=== PATIENT | female | born 2000 | race Caucasian/White ===

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

== ENCOUNTER → 2021-05-21 12:56 | Outpatient (BNVA) | payer OTHER, SELFPAY | PROVIDERS: Family Provider Nurse Practitioner Family; PCP Nurse Practitioner Family | DX: R30.9 Painful micturition, unspecified (principal); N89.8 Other specified noninflammatory disorders of vagina; R10.2 Pelvic and perineal pain | CPT/HCPCS: 81000; 87491; 87530; 87591 ==

== ENCOUNTER → 2021-10-09 09:11 | Outpatient (BNVA) | payer OTHER, SELFPAY | PROVIDERS: Family Provider Nurse Practitioner Family; PCP Nurse Practitioner Family; Visit Provider Nurse Practitioner Family | DX: D35.2 Benign neoplasm of pituitary gland (principal); E22.9 Hyperfunction of pituitary gland, unspecified | CPT/HCPCS: 80048; 84146 ==

== ENCOUNTER → 2021-12-24 08:48 | Outpatient (BNVA) | payer OTHER, SELFPAY | PROVIDERS: Family Provider Nurse Practitioner Family; PCP Nurse Practitioner Family; Visit Provider Internal Medicine | DX: D35.2 Benign neoplasm of pituitary gland (principal); E22.9 Hyperfunction of pituitary gland, unspecified | CPT/HCPCS: 82024; 82672; 83001; 83002; 84144; 84146; 84305; 84439 ==

== ENCOUNTER 2022-05-02 16:41 | Inpatient (IN) | payer OTHER, SELFPAY ==
[2022-05-02 16:50] VITALS: BP 123/82; PULSE 90; RESP 16; TEMP 36.7; O2SAT 95; BMI 22.6
[2022-05-02 17:29] LABS: Basophils % 0.6 %; Eosinophils # 0.1 10^3/uL (0.0-0.8); Eosinophils % 0.9 %; Hematocrit 39.4 % (37.0-47.0); Lymphocytes # 1.8 10^3/uL (1.5-6.5); Lymphocytes % 28.3 %; Mean Corpuscular Hemoglobin 30.3 pg (28.0-34.0); Mean Corpuscular Volume 91.8 fl (81-99); Mean Platelet Volume 9.7 fL (7.4-10.4); Monocytes # 0.6 10^3/uL (0.2-0.9); Neutrophils # 3.82 10^3/uL (1.8-8.0); Neutrophils % 59.9 %; Nucleated Red Blood Cells % 0 %; Platelet Count 299 10^3/cmm (130-400); Red Blood Count 4.29 10^6/uL (4.1-5.3); Red Cell Distribution Width 12.3 % (12.1-15.1); White Blood Count 6.4 10^3/uL (4.5-13.0)
--- NOTE | 2022-05-02 17:38 | ED.C_ITS ---
HPI - Psych General: Chief Complaint: Psychiatric Symptoms Stated Complaint: Psych Eval Time Seen by Provider: 05/02/22 16:51 Source: patient Mode of arrival: ambulatory Limitations: no limitations History of Present Illness: 21-year-old female who has a history of depression states that she has been in college over the last 10 months having increasing life stressors depression and anxiety she states she is been on meds in the past on anything currently she states that she just feels severely depressed she denies any suicidality or homicidality but voluntarily wants to be admitted to the psych busch. Associated symptoms: Reports depression Review of Systems Const: Denies: fever(s), chills, body aches or change in appetite Eyes: Denies: blurry vision or eye discomfort ENMT: Denies: throat pain or dental pain Card: Denies: chest pain Resp: Denies: dyspnea GI: Denies: abdominal pain, nausea, vomiting or diarrhea : Denies: dysuria Musc: Denies: neck pain or back pain Skin/Breast: Denies: rash Neuro: Denies: headache(s) Psych: Reports: depression Leon/Lymph: Denies: easy bruising All/Imm: Denies: urticaria PFSH ED PFSH: Medical History No pertinent past medical history neghx: htn,dm,thyroid,dvt/pe Surgical History No pertinent past surgical history Family History Grandmother Breast cancer paternal, paternal great grandmother Hypertension maternal Thyroid condition paternal Heart disease maternal great Grandfather Diabetes paternal Heart disease maternal great Social History Smoking and tobacco status: current every day smoker Alcohol intake: never Additional social history: - Tobacco use: Denies Alcohol use: Denies Drug use: Denies Female Reproductive History: Date of last menstrual period: 03/18/22 Physical Exam Const: COMMON NORMALS: no acute distress, patient oriented x3 and healthy appearing HENMT: COMMON NORMALS: normocephalic and atraumatic HEAD & SCALP: normocephalic and atraumatic Eye: COMMON NORMALS: Equal, round and reactive pupils present and EOMs intact bilaterally PUPIL: Yes Equal, round and reactive pupils present Neck/C-Spine: COMMON NORMALS: full ROM and supple Chest: COMMONS NORMALS: normal inspection of the chest and normal palpation of entire chest wall Resp: COMMON NORMALS: normal respiratory effort, No retractions, No use of accessory muscles and clear to auscultation bilaterally AUSCULTATION: clear to auscultation bilaterally Cardio: COMMON NORMALS: regular rate, regular rhythm and No murmurs present (Cardio) RATE: regular rate RHYTHM: regular rhythm GI: COMMON NORMALS: Normal to inspection, nondistended, normoactive bowel sounds present, Soft to palpation, non-tender and no masses PALPATION: Yes Soft to palpation Extremity: COMMON NORMALS: normal to inspection and full ROM Neuro: COMMON NORMALS: patient oriented x3, moves all extremities and no focal motor deficits Psych: COMMON NORMALS: mental status grossly normal, Normal thought process present and cooperative MOOD & AFFECT: Yes depressed mood THOUGHT PROCESS: Normal thought process present Skin: COMMON NORMALS: no rashes or lesions noted and no wounds GENERAL SKIN EXAM: no rashes or lesions noted Course Vital Signs: Vital signs: Vital Signs Temperature 98.1 F 05/02/22 16:50 Pulse Rate 90 05/02/22 16:50 Respiratory Rate 16 05/02/22 16:50 Blood Pressure 123/82 05/02/22 16:50 Pulse Oximetry 95 05/02/22 16:50 Oxygen Delivery Me thod 05/02/22 16:50 [facility] - Psych Medical Decision Making Patient presents here with depression she is medically cleared I spoke to psychiatrist will admit to the psych unit under voluntary status. Lab Data : 05/02/22 17:22 05/02/22 17:22 Laboratory Results WBC 6.4 10^3/uL (4.5-13.0) 05/02/22 17: RBC 4.29 10^6/uL (4.1-5.3) 05/02/22 17:22 Hgb 13.0 g/dL (11.5-15.3) 05/02/22 17:22 Hct 39.4 % (37.0-47.0) 05/02/22 17:22 MCV 91.8 fl (81-99) 05/02/22 17:22 MCH 30.3 pg (28.0-34.0) 05/02/22 17: MCHC 33.0 g/dL (30.0-36.0) 05/02/22 17: RDW 12.3 % (12.1-15.1) 05/02/22 17: Plt Count 299 10^3/cmm (130-400) 05/02/22 17: MPV 9.7 fL (7.4-10.4) 05/02/22 17: Neut % (Auto) 59.9 % 05/02/22 17: Lymph % (Auto) 28.3 % 05/02/22 17: [place] % (Auto) 10.0 % 05/02/22 17: Eos % (Auto) 0.9 % 05/02/22 17: Baso % (Auto) 0.6 % 05/02/22: Neut # (Auto) 3.82 10^3/uL (1.8-8.0) 05/02/22: Lymph # (Auto) 1.8 10^3/uL (1.5-6.5) 05/02/22: [place] # (Auto) 0.6 10^3/uL (0.2-0.9) 05/02/22: Eos # (Auto) 0.1 10^3/uL (0.0-0.8) 05/02/22: Baso # (Auto) 0.0 10^3/uL (0.0-0.1) 05/02/22: Nucleated RBC % (auto) 0 % 05/02/22 17: Nucleated RBCs # 0.0 /100WBC 05/02/22 17:22 Sodium 140 mmol/L (136-145) 05/02/22 17: Potassium 3.8 mmol/L (3.5-5.1) 05/02/22 17: Chloride 102 mmol/L (98-107) 05/02/22 17: Carbon Dioxide 30 mmol/L (22-29) H 05/02/22 17:22 Anion Gap 11.8 (5-19) 05/02/22 17: BUN 7 mg/dL (6-20) 05/02/22 17:22 Creatinine 0.8 mg/dL (0.5-0.9) 05/02/22 17:22 GFR Calculation 91.4 mL/min (90-130) 05/02/22 17:22 Glucose 97 mg/dL (65-115) 05/02/22 17:22 Calculated Osmolality 288 mOsm/kg (285-295) 05/02/22 17:22 Calcium 9.6 mg/dL (8.5-10.5) 05/02/22 17:22 Total Bilirubin 0.5 mg/dL (0.15-1.2) 05/02/22 17:22 AST 19 U/L (0-32) 05/02/22 17:22 ALT 13 U/L (0-33) 05/02/22 17:22 Alkaline Phosphatase 76 U/L (35-105) 05/02/22 17:22 Total Protein 7.4 g/dL (6.6-8.7) 05/02/22 17:22 Albumin 4.8 g/dL (3.5-5.2) 05/02/22 17:22 Globulin 2.6 g/dL (1.3-4.6) 05/02/22 17:22 HCG, Qual Negative (Negative) 05/02/22 18:19 Salicylates < 0.3 mg/dL (3-10) L 05/02/22 17:22 Acetaminophen < 5.0 ug/mL (10-30) L 05/02/22 17:22 Ethyl Alcohol < 10 mg/dL (0-10) 05/02/22 17:22 Discharge Plan Discharge Patient Disposition: Admitted As Inpatient Admit Provider: Elliott Best Clinical Impression: Depression Condition: Stable Coding Level of Care Code ED Humanities And Languages Professor for Chg Fwd Exam Comprehensive
[2022-05-02 17:45] LABS: Alanine Aminotransferase 13 U/L (0-33); Albumin Level 4.8 g/dL (3.5-5.2); Alkaline Phosphatase 76 U/L (35-105); Anion Gap 11.8 (5-19); Aspartate Amino Transferase 19 U/L (0-32); Blood Urea Nitrogen 7 mg/dL (6-20); Calcium 9.6 mg/dL (8.5-10.5); Carbon Dioxide 30 mmol/L (22-29); Chloride 102 mmol/L (98-107); Creatinine Clr Calc Pharmacy 107.9875; Globulin 2.6 g/dL (1.3-4.6); Glomerular Filtration Rate 91.4 mL/min (90-130); Glucose 97 mg/dL (65-115); Osmolality Calculated 288 mOsm/kg (285-295); Potassium 3.8 mmol/L (3.5-5.1); Sodium 140 mmol/L (136-145); Total Bilirubin 0.5 mg/dL (0.15-1.2); Total Protein 7.4 g/dL (6.6-8.7)
[2022-05-02 17:50] LABS: Acetaminophen < 5.0 ug/mL (10-30); Alcohol Level < 10 mg/dL (0-10); Salicylate < 0.3 mg/dL (3-10)
[2022-05-02 18:29] LABS: HCG Qualitative Urine. Negative (Negative)
--- NOTE | 2022-05-02 18:58 | PC.NURSE ---
REPORT GIVEN TO TALHA [facility] ASSUMED CARE.
[2022-05-02 19:30] LABS: Amphetamines Screen Urine Negative (Negative); Barbiturates Screen Urine Negative (Negative); Benzodiazepines Screen Urine Negative (Negative); Cocaine Screen Urine Negative (Negative); Opiate Screen Urine Negative (Negative); PCP Screen Urine Negative (Negative); THC Screen Urine Negative (Negative)
[2022-05-02 20:39] VITALS: BP 115/78; PULSE 70; RESP 18; TEMP 37.1; O2SAT 97
--- NOTE | 2022-05-02 21:05 | PC.NURSE ---
1917 Arrived from ER via w/c and staff escort. A/O x 4, bright affect, conversation is oriented and goal directed. Denies SI/HH/AVH. Ambulatory without assist. Bilateral nose piercings, piercing to lower lip. States increasing s/s of depression, anxiety over the past years. Being in college now is making s/s worse. Good support system including friends and family. Denies significant medical HX. NKA. Stated previous used of ETOH & MJ since age 14 and stopped on her own 7 mos ago. Oriented to unit by staff.
[2022-05-03 07:05] VITALS: BP 107/71; PULSE 75; RESP 16; TEMP 36.8; O2SAT 100
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
[2022-05-03 14:00] VITALS: BP 98/66; PULSE 86; RESP 16; TEMP 36.6; O2SAT 100
[2022-05-03] MEDS: fluoxetine 10 mg Capsule PO (18:46)
[2022-05-03] MEDS: BuSPIRONE 10 mg Tablet 15 MG PO (18:46)
[2022-05-03 19:37] VITALS: BP 113/86; PULSE 82; RESP 16; TEMP 36.8; O2SAT 99
[2022-05-04 06:00] VITALS: BP 117/77; PULSE 76; RESP 16; TEMP 36.8; O2SAT 99
[2022-05-04] MEDS: fluoxetine 20 mg Capsule PO (08:33)
[2022-05-04] MEDS: BuSPIRONE 10 mg Tablet 15 MG PO (08:33)
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
[2022-05-04 13:43] VITALS: BP 110/70; PULSE 80; RESP 18; TEMP 36.8; O2SAT 99
== END 2022-05-04 14:45 | disposition home or self-care (01) | DRG 881 ==
LOC: ER 18:40 → NP 18:46
PROVIDERS: Admitting Provider Psychiatry & Neurology Psychiatry; Emergency Provider Emergency Medicine; PCP Nurse Practitioner Family; Visit Provider Psychiatry & Neurology Psychiatry
DX: F32.A Depression, unspecified (principal); F41.1 Generalized anxiety disorder; F43.12 Post-traumatic stress disorder, chronic; Z62.810 Personal history of physical and sexual abuse in childhood; Z63.8 Other specified problems related to primary support group; Z62.820 Parent-biological child conflict; Z62.898 Other specified problems related to upbringing; F17.210 Nicotine dependence, cigarettes, uncomplicated
CPT/HCPCS: 36415; 80053; 80306; 80307; 81025; 85025; 97150; 97165; 99285

== ENCOUNTER 2022-07-01 13:17 | Emergency (ER) | payer OTHER, SELFPAY ==
[2022-07-01 13:25] VITALS: BP 132/84; PULSE 89; TEMP 36.8; O2SAT 99; BMI 21.9
[2022-07-01 13:50] LABS: HCG Qualitative Urine. Negative (Negative)
[2022-07-01 13:55] LABS: Basophils % 0.7 %; Eosinophils # 0.1 10^3/uL (0.0-0.8); Eosinophils % 0.9 %; Hematocrit 38.6 % (37.0-47.0); Hemoglobin 12.8 g/dL (11.5-15.3); Lymphocytes # 1.2 10^3/uL (0.8-4.8); Lymphocytes % 21.8 %; Mean Corpuscular HGB Conc 33.2 g/dL (30.0-36.0); Mean Corpuscular Hemoglobin 30.4 pg (28.0-34.0); Mean Corpuscular Volume 91.7 fl (81-99); Mean Platelet Volume 9.4 fL (7.4-10.4); Monocytes # 0.5 10^3/uL (0.2-0.9); Monocytes % 8.5 %; Neutrophils # 3.82 10^3/uL (1.8-7.7); Neutrophils % 67.9 %; Nucleated Red Blood Cells % 0 %; Platelet Count 281 10^3/cmm (130-400); Red Blood Count 4.21 10^6/uL (4.1-5.3); White Blood Count 5.6 10^3/uL (4.0-10.0)
[2022-07-01 14:07] LABS: INR 1.07 (0.8-1.2)
[2022-07-01 14:08] LABS: Partial Thromboplastin Time 34.2 SECONDS (23.9-36.7)
[2022-07-01 14:13] LABS: Alanine Aminotransferase 21 U/L (0-33); Albumin Level 4.4 g/dL (3.5-5.2); Alkaline Phosphatase 76 U/L (35-105); Anion Gap 14.9 (5-19); Aspartate Amino Transferase 24 U/L (0-32); Blood Urea Nitrogen 6 mg/dL (6-20); Calcium 9.2 mg/dL (8.5-10.5); Carbon Dioxide 27 mmol/L (22-29); Chloride 104 mmol/L (98-107); Globulin 3.3 g/dL (1.3-4.6); Glomerular Filtration Rate 105.6 mL/min (90-130); Glucose 94 mg/dL (65-115); Lipase 28 U/L (13-60); Osmolality Calculated 291 mOsm/kg (285-295); Potassium 3.9 mmol/L (3.5-5.1); Sodium 142 mmol/L (136-145); Total Bilirubin 0.3 mg/dL (0.15-1.2); Total Protein 7.7 g/dL (6.6-8.7)
[2022-07-01 14:36] LABS: Add Urine Microscopic? NO; Charge for UA Resulting for Rev
[2022-07-01 14:39] LABS: Bilirubin Urine Neg (Negative); Blood Urine Neg (Negative); Glucose Urine UA Norm (Normal); Ketones Urine Negative (Negative); Leukocyte Esterase Urine Negative (Negative); Nitrate Urine Negative (Negative); Protein Urine Neg (Negative); Urine Appearance Clear (CLEAR); Urine Color Yellow (Yellow); Urobilinogen Urine Norm (Negative); pH Urine 5 (5-7)
--- NOTE | 2022-07-01 15:05 | W.ED.ABDPA2 ---
HPI - Abdominal Pain General: Chief Complaint: Abdominal Pain Stated Complaint: n/v/d Time Seen by Provider: 07/01/22 14:35 History of Present Illness: Patient was roomed. I went to see her, and she told the nurse she decided she really didn't need to be seen. Patient decided to leave without evaluation. Related Data: Date of Last Menstrual Period: 03/18/22 [facility] ED PFSH: Medical History No pertinent past medical history neghx: htn,dm,thyroid,dvt/pe Surgical History No pertinent past surgical history Family History Grandmother Breast cancer paternal, paternal great grandmother Hypertension maternal Thyroid condition paternal Heart disease maternal great Grandfather Diabetes paternal Heart disease maternal great Social History Smoking and tobacco status: current some day smoker Alcohol intake: never Additional social history: - Tobacco use: Denies Alcohol use: Denies Drug use: Denies Female Reproductive History: Date of last menstrual period: 03/18/22 Course Vital Signs: Vital signs: Vital Signs Temperature 98.3 F 07/01/22 13:25 Pulse Rate 89 07/01/22 13:25 Blood Pressure 132/84 07/01/22 13:25 Pulse Oximetry 99 07/01/22 13:25 Oxygen Delivery Me thod 07/01/22 13:25 MDM - Abdominal Pain Medical Decision Making LWOBS Lab Data 07/01/22 13:50 07/01/22 13:50 Labs/Radiology: Laboratory Results WBC 5.6 10^3/uL (4.0-10.0) 07/01/22 13:50 RBC 4.21 10^6/uL (4.1-5.3) 07/01/22 13:50 Hgb 12.8 g/dL (11.5-15.3) 07/01/22 13:50 Hct 38.6 % (37.0-47.0) 07/01/22 13:50 MCV 91.7 fl (81-99) 07/01/22 13:50 MCH 30.4 pg (28.0-34.0) 07/01/22 13:50 MCHC 33.2 g/dL (30.0-36.0) 07/01/22 13:50 RDW 12.0 % (12.1-15.1) L 07/01/22 13:50 Plt Count 281 10^3/cmm (130-400) 07/01/22 13:50 MPV 9.4 fL (7.4-10.4) 07/01/22 13:50 Neut % (Auto) 67.9 % 07/01/22 13:50 Lymph % (Auto) 21.8 % 07/01/22 13:50 [place] % (Auto) 8.5 % 07/01/22 13:50 Eos % (Auto) 0.9 % 07/01/22 13:50 Baso % (Auto) 0.7 % 07/01/22 13:50 Neut # (Auto) 3.82 10^3/uL (1.8-7.7) 07/01/22 13:50 Lymph # (Auto) 1.2 10^3/uL (0.8-4.8) 07/01/22 13:50 [place] # (Auto) 0.5 10^3/uL (0.2-0.9) 07/01/22 13:50 Eos # (Auto) 0.1 10^3/uL (0.0-0.8) 07/01/22 13:50 Baso # (Auto) 0.0 10^3/uL (0.0-0.1) 07/01/22 13:50 Nucleated RBC % (auto) 0 % 07/01/22 13:50 Nucleated RBCs # 0.0 /100WBC 07/01/22 13:50 PT 14.20 SECONDS (12.1-14.9) 07/01/22 13:50 INR 1.07 (0.8-1.2) 07/01/22 13:50 APTT 34.2 SECONDS (23.9-36.7) 07/01/22 13:50 Sodium 142 mmol/L (136-145) 07/01/22 13:50 Potassium 3.9 mmol/L (3.5-5.1) 07/01/22 13:50 Chloride 104 mmol/L (98-107) 07/01/22 13:50 Carbon Dioxide 27 mmol/L (22-29) 07/01/22 13:50 Anion Gap 14.9 (5-19) 07/01/22 13:50 BUN 6 mg/dL (6-20) 07/01/22 13:50 Creatinine 0.7 mg/dL (0.5-0.9) 07/01/22 13:50 GFR Calculation 105.6 mL/min (90-130) 07/01/22 13:50 Glucose 94 mg/dL (65-115) 07/01/22 13:50 Calculated Osmolality 291 mOsm/kg (285-295) 07/01/22 13:50 Calcium 9.2 mg/dL (8.5-10.5) 07/01/22 13:50 Total Bilirubin 0.3 mg/dL (0.15-1.2) 07/01/22 13:50 AST 24 U/L (0-32) 07/01/22 13:50 ALT 21 U/L (0-33) 07/01/22 13:50 Alkaline Phosphatase 76 U/L (35-105) 07/01/22 13:50 Total Protein 7.7 g/dL (6.6-8.7) 07/01/22 13:50 Albumin 4.4 g/dL (3.5-5.2) 07/01/22 13:50 Globulin 3.3 g/dL (1.3-4.6) 07/01/22 13:50 Lipase 28 U/L (13-60) 07/01/22 13:50 HCG, Qual Negative (Negative) 07/01/22 13:35 Urine Color Yellow (Yellow) 07/01/22 14:27 Urine Appearance Clear (CLEAR) 07/01/22 14:27 Urine pH 5 (5-7) 07/01/22 14:27 Ur Specific [place] 1.020 (1.005-1.030) 07/01/22 14:27 Urine Protein Neg (Negative) 07/01/22 14:27 Urine Glucose (UA) Norm (Normal) 07/01/22 14:27 Urine Ketones Negative (Negative) 07/01/22 14:27 Urine Blood Neg (Negative) 07/01/22 14:27 Urine Nitrate Negative (Negative) 07/01/22 14:27 Urine Bilirubin Neg (Negative) 07/01/22 14:27 Urine Urobilinogen Norm mg/dL (Negative) 07/01/22 14:27 Ur Leukocyte Esterase Negative (Negative) 07/01/22 14:27 Discharge Plan Discharge Condition: Stable Prescriptions: No Action fluoxetine 20 mg capsule 20 mg PO BID 30 Days Qty: 60 1RF buspirone 15 mg tablet 15 mg PO BID 30 Days Qty: 60 1RF Referrals: Aleena Thomas FNP [Primary Care Provider] - Coding Level of Care Code ED [employer] Install[employer] 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
== END 2022-07-01 15:00 | disposition left against medical advice (07) ==
PROVIDERS: Family Medicine; Emergency Provider Emergency Medicine; PCP Nurse Practitioner Family
DX: R10.9 Unspecified abdominal pain (principal); F17.210 Nicotine dependence, cigarettes, uncomplicated; Z53.21 Procedure and treatment not carried out due to patient leaving prior to being seen by health care provider
CPT/HCPCS: 36415; 80053; 81003; 81025; 83690; 85025; 85610; 85730; 99283

== ENCOUNTER → 2022-12-09 09:48 | Outpatient (BNVA) | payer OTHER, SELFPAY | PROVIDERS: PCP Nurse Practitioner Family; Visit Provider Nurse Practitioner Family | DX: J02.9 Acute pharyngitis, unspecified (principal); J06.9 Acute upper respiratory infection, unspecified | CPT/HCPCS: 87880 ==

== ENCOUNTER → 2023-07-18 13:45 | Outpatient (BNVA) | payer OTHER, SELFPAY | PROVIDERS: PCP Nurse Practitioner Family; Visit Provider Nurse Practitioner Family | DX: J32.9 Chronic sinusitis, unspecified (principal); R06.2 Wheezing; J06.9 Acute upper respiratory infection, unspecified | CPT/HCPCS: 87400; 87426 ==

== ENCOUNTER → 2023-08-01 10:45 | Outpatient (BNVA) | payer OTHER, SELFPAY | PROVIDERS: PCP Nurse Practitioner Family; Visit Provider Nurse Practitioner Family | DX: R50.9 Fever, unspecified (principal); R05.9 Cough, unspecified; J01.10 Acute frontal sinusitis, unspecified | CPT/HCPCS: 87400; 87426 ==

== ENCOUNTER → 2024-04-27 07:48 | Outpatient (BNVA) | payer OTHER, SELFPAY | PROVIDERS: PCP Nurse Practitioner Family; Visit Provider Nurse Practitioner Family | DX: R30.0 Dysuria (principal) | CPT/HCPCS: 81000; 87086 ==